=== PATIENT | male | born 1955 | race Caucasian/White ===

== ENCOUNTER 2022-12-23 12:04 | Day surgery (SDC) | payer OTHER ==
[2022-12-21 10:07] LABS: Potassium 4.4 mmol/L (3.5-5.1)
[2022-12-23] MEDS ORDERED: Ringers Lactate 1,000 ML IV ONE (12:11)
[2022-12-23] MEDS ORDERED: CEFTRIAXONE 1000 MG/VIAL ONE (12:31)
[2022-12-23] MEDS ORDERED: BUPIVACAINE 0.25% PF 30 ML VIAL ONE (13:35)
[2022-12-23] MEDS ORDERED: propofoL 200 MG/20 ML VIAL IV ONE ×2 (14:31→15:00)
[2022-12-23] MEDS ORDERED: MIDAZOLAM HCL 2 MG/2 ML INJ ONE ×2 (14:55→16:23)
[2022-12-23] MEDS ORDERED: ROCURONIUM 50 MG/5 ML VIAL IV ONE (15:01)
[2022-12-23] MEDS ORDERED: LIDOCAINE 2% MPF 5 ML VIAL ONE (15:01)
[2022-12-23] MEDS ORDERED: FENTANYL CITR 100 MCG/2 ML ONE (15:01)
[2022-12-23] MEDS ORDERED: ONDANSETRON 4 MG/2 ML VIAL ONE (15:01)
[2022-12-23] MEDS ORDERED: dexAMETHasone 4 MG/ML VIAL ONE (15:01)
[2022-12-23] MEDS ORDERED: MEPERIDINE HCL 25 MG/ML SYR ONE (15:50)
[2022-12-23] MEDS ORDERED: GLYCOPYRROLATE 0.2 MG/ML SYR ONE (15:51)
--- NOTE | 2022-12-23 16:08 | P.OP ---
Preoperative diagnosis: Umbilical Hernia Postoperative diagnosis: Umbilical Hernia Primary procedure: Laparoscopic Umbilical Hernia Repair with mesh Anesthesia: GETA + Local Estimated blood loss: <2cc Specimen: Hernia Contents Findings: Incarcerated omental fat, umbilical hernia Complications: None Implants: 11.4cm round Bard ventralite ST mesh, Sorbafix x 50 tacks Transferred to: Recovery Room Condition: Good
[2022-12-23] MEDS ORDERED: KETOROLAC 30 MG/ML INJ ONE (16:09)
[2022-12-23] MEDS: HYDROMORPHONE HCL 1 MG/ML INJ ONE ×2 (16:25→16:30)
[2022-12-23] MEDS ORDERED: HYDROCODONE/APAP 10/325 TAB ONE (17:00)
[2022-12-23 18:06] VITALS: BP 153/94; O2SAT 99
[2022-12-23 18:10] VITALS: TEMP 97.2
--- NOTE | 2022-12-24 03:29 | OP ---
Date of Procedure: 12/23/2022 Surgeon: Juan Francisco Palacios MD, Preoperative Diagnosis: Umbilical hernia. Postoperative Diagnosis: Umbilical hernia. Procedure Performed: Laparoscopic umbilical hernia repair with mesh. Anesthesia: General endotracheal plus local with 0.25% Marcaine. Estimated Blood Loss: 2 cc. Specimen: Hernia contents. Findings: Incarcerated omental fat and umbilical hernia. Complications: None. Implants: 11.[address] mesh with Echo positioning System. SorbaFix absorbable fixati on tacks x50. Disposition: The patient transferred to recovery room in good condition. Procedure In Detail: After informed was obtained, patient brought to the operating room, prepped and draped in the usual sterile fashion. After adequate anesthesia was achieved, a left upper quadrant area was anesthetized with 0.25% Marcaine, sharply incised. A 5 mm trocar was placed under direct vi jesse without evidence of complication. Insufflation was obtained to 15 mmHg at this time. There was no injury to vital structures upon entry into the abdomen. Additional trocar placed in the left low er quadrant. This was similarly anesthetized, sharply incised, and a 12 mm trocars placed under dire ct visualization without evidence complication. At this point, I brought the LigaSure device into th e field and reduced an incarcerated omental hernia. I reduced back some preperitoneal fat as well us ing LigaSure device and removed with the trocar, sent off for pathologic examination as hernia conten ts. At this point, I inspected the hernia sac and closed it using a Ventralight ST mesh with Echo po sitioning System. I then sewed the defect closed, imbricating the hernia sac using an Endo Stitch wi a V-Loc in a continuous running fashion with good apposition of the tissues. I then brought in a Bard Ventralight ST mesh with Echo positioning System, 11.4 cm round mesh. At this point, I secured the mesh to the anterior abdominal wall using the SorbaFix absorbable fixation tacks. I then removed the balloon deployment system, which was faulty at this point. However, it was found to be intact o n the back table. I then deployed a second crown of absorbable fixation tacks to the anterior abdomi nal wall with good apposition of the tissues. At this point, I turned my attention to the 12 mm troc ar site, closed it using a Parker-Nicky suture passer with 0 Vicryl in an interrupted fashion with good approximation of tissues. The abdomen was completely desufflated under direct visualization wi thout evidence of complication. The remaining trocars were inspected. All skin incisions copiously irrigated, closed with a 4-0 Monocryl fashion. Dermabond placed over top. The patient tolerated the procedure well without evidence of complication and transferred to PACU in good condition. All coun ts were correct at the end of the case. EMANUEL/DIA Voice ID: [id number] Report ID: [id number]
== END 2022-12-23 17:50 | disposition home or self-care (01) ==
LOC: OR 12:04
PROVIDERS: ATTEND Surgery
PROC: 0WUF4JZ Supplement Abdominal Wall with Synthetic Substitute, Percutaneous Endoscopic Approach (ICD-10-PCS; principal; 2022-12-23 14:00)
DX: K42.9 Umbilical hernia without obstruction or gangrene (principal)
CPT/HCPCS: 49594; 93005; 80048; 36415; 88302; J2704 ×2; J1100; J2001; J2250 ×2; J3010; J2175; J1170; J7120; J2405; C1781